=== PATIENT | male | born 2000 | race Caucasian/White ===

== ENCOUNTER 2022-03-29 09:28 | Emergency (ER) | payer OTHER ==
[~2022-03-29] VITALS: Ht 165.1 cm; Wt 59.0 kg
[2022-03-29] MEDS ORDERED: DOXYCYCLINE HY100 M2 PO (11:46)
[2022-03-29] MEDS ORDERED: METRONIDAZOLE500 MG PO (11:46)
== END 2022-03-29 12:21 | disposition home or self-care (01) ==
LOC: ER 09:28
DX: A64 Unspecified sexually transmitted disease (principal); R30.0 Dysuria